=== PATIENT | female | born 1975 | race African-American/Black ===

== ENCOUNTER 2017-08-28 11:54 | Emergency (ER) | payer OTHER ==
[2017-08-28 14:05] VITALS: BP 159/100
--- NOTE | 2017-08-28 14:10 | UC ---
Hypertension HPI - HPI Summary HPI Summary: 42 yo female present stating it feels like her BP is high She has been non compliant with her meds (a diuretic) feels flushed and a little dizzy no CP or SOB - History of Current Complaint Chief Complaint: UCGeneralIllness Stated Complaint: BP ELEVATED Time Seen by Provider: 08/28/17 12:03 Hx Obtained From: Patient Hx Last Menstrual Period: 08/18/17 Onset/Duration: Gradual Onset, Lasting Hours Timing: Constant Aggravating Factor(s): Nothing Alleviating Factor(s): Nothing Associated Signs And Symptoms: Positive: Dizziness Related Hx: Rx Non-Compliance Current Medications: Diuretic - unsure of name - Allergies/Home Medications Allergies/Adverse Reactions: Allergies Allergy/AdvReac Type Severity Reaction Status Date / Time Penicillins Allergy Hives Verified 08/28/17 12:14 PMH/Surg Hx/FS Hx/Imm Hx Previously Healthy: Yes Cardiovascular History: Hypertension - Surgical History Surgical History: None - Family History Known Family History: Positive: Hypertension, Diabetes - Social History Alcohol Use: Rare Substance Use Type: None Smoking Status (MU): Never Smoked Tobacco Review of Systems Constitutional: Negative Skin: Negative Eyes: Negative ENT: Negative Respiratory: Negative Cardiovascular: Negative Gastrointestinal: Negative Genitourinary: Negative Motor: Negative Neurovascular: Negative Musculoskeletal: Negative Neurological: Negative Psychological: Negative Is Patient Immunocompromised?: No All Other Systems Reviewed And Are Negative: Yes Physical Exam Triage Information Reviewed: Yes Appearance: Well-Appearing, No Pain Distress, Well-Nourished Vital Signs: Initial Vital Signs Temp 98.8 F 08/28/17 12:14 Pulse 81 08/28/17 12:14 Resp 18 08/28/17 12:14 BP 175/113 08/28/17 12:14 Pulse Ox 100 08/28/17 12:14 Vital Signs Reviewed: Yes Eyes: Positive: Conjunctiva Clear, Other: - fundi- no H/E, sharp discs ENT: Negative: Nasal congestion, Nasal drainage, Trismus, Muffled voice, Hoarse voice Neck: Positive: Supple, Nontender, No Lymphadenopathy Respiratory: Positive: Lungs clear, Normal breath sounds, No respiratory distress, No accessory muscle use Cardiovascular: Positive: RRR, No Murmur, Pulses Normal Musculoskeletal: Positive: ROM Intact, No Edema Neurological: Positive: Alert Psychological Exam: Normal Skin Exam: Normal Diagnostics - EKG Cardiac Rate: NL Cardiac Rhythm: Sinus: Normal Ectopy: None ST Segment: Normal - pt with EKG evidence of LVH Hypertension Course/Dx - Course Course Of Treatment: I called her MDs office (Dr. Armijo) and the state she had not been in to see them since 2014 - Differential Dx/Diagnosis Provider Diagnoses: hypertension Discharge - Discharge Plan Condition: Stable Disposition: HOME Prescriptions: Chlorthalidone TAB* [Hygroton TAB*] 25 mg PO DAILY #30 tab Patient Education Materials: Low-Sodium Diet (ED), Hypertension (ED) Referrals: [facility] [place] PHYSICIAN REFERRAL [Outside] - As Soon As Possible Additional Instructions: you need to have this followed up...first available appt recheck for new or worsening symptoms
== END 2017-08-28 13:15 | disposition home or self-care (01) ==
LOC: UCEAST 11:54
DX: I10 Essential (primary) hypertension (principal)
CPT/HCPCS: 36415; 86703; 93005; 99202; G0463

== ENCOUNTER 2019-06-14 13:23 | Day surgery (SDC) | payer OTHER ==
[~2019-06-14 13:23] MED LIST: Buffered Lidocaine 1% SYRIN* 1 ML/SYRINGE INTRADERM ONE; Dexamethasone TAB* 4 MG PO ONE; DiMENhydriNATE IV* 50 MG/ML VIAL IV PUSH PRN; Famotidine IV* 10 MG/ML 2 ML (20 mg) IV ONE; Lactated Ringers 1000 ML Bag* 1,000 ML IV SCH; Metoclopramide IV* 5 MG/ML 2 ML VIAL IV PRN; Naloxone* 0.4 MG/ML 1 ML VIAL IV PRN; Ondansetron ODT TAB* 4 MG PO ONE; Scopolamine 1.5 mg* PATCH TRANSDERM PRN; fentaNYL* 50 MCG/ML 2 ML VIAL (100 MCG VIAL) IV PRN; oxyCODONE/Acetamin 5/325 MG* TAB PO PRN
[2019-06-14] MEDS ORDERED: Ondansetron ODT TAB* 4 MG ONE (13:52)
[2019-06-14] MEDS ORDERED: Dexamethasone TAB* 4 MG ONE (13:53)
[2019-06-14] MEDS ORDERED: Famotidine IV* 10 MG/ML 2 ML (20 mg) ONE (13:53)
[2019-06-14] MEDS ORDERED: fentaNYL* 50 MCG/ML 2 ML VIAL (100 MCG VIAL) ONE (14:17)
[2019-06-14] MEDS ORDERED: Midazolam* 1 MG/ML 5 ML VIAL (5 MG) ONE (14:18)
[2019-06-14] MEDS ORDERED: KETAMINE HCL* 50 MG/ML 10 ML VIAL ONE (14:18)
[2019-06-14] MEDS ORDERED: Silver Nitrate/Potassium Nitr* 1 EA STICK ONE (15:38)
[2019-06-14] MEDS ORDERED: PROCHLORPERAZINE INJ 5 MG/ML 2 ML VIAL ONE (16:09)
[2019-06-14] MEDS ORDERED: Lidocaine 2% PF * 5 ML VIAL ONE (16:09)
[2019-06-14] MEDS ORDERED: Ketorolac INJ* 30 MG/ML 1 ML VIAL ONE (16:09)
[2019-06-14] MEDS ORDERED: Propofol* 10 MG/ML 20 ML BTL ONE (16:09)
[2019-06-14] MEDS ORDERED: hydrALAZINE IV* 20 MG/ML VIAL ONE (16:17)
[2019-06-14] MEDS ORDERED: Metoprolol Tartrate IV* 1 MG/ML 5 ML VIAL ONE (16:17)
[2019-06-14 17:54] VITALS: BP 134/92
--- NOTE | 2019-06-14 21:00 | OP ---
DATE OF OPERATION: 06/14/19 [facility], [place] DATE OF : 71 SURGEON: Elisabet Cohen MD. ANESTHESIOLOGIST: Dr. Rivers. ANESTHESIA: General endotracheal anesthesia. PRE-OP DIAGNOSES: Menorrhagia, endometrial polyp on endometrial biopsy. POST-OP DIAGNOSES: Menorrhagia, endometrial polyp on endometrial biopsy. OPERATIVE PROCEDURE: Dilation, hysteroscopy, MyoSure polypectomy, curettage. ESTIMATED BLOOD LOSS: Minimal, less than 20 cc. SPECIMEN: Endometrial polyp and endometrial curettings. FLUIDS: Per Anesthesia. DRAINS: None. FINDINGS: Midline, anteverted, 6-week size bulky uterus, no adnexal masses palpated, midline normal appearing cervix. There was a long thin polyp originating from the anterior uterine wall extending towards the cervix. Both tubal ostia were visualized and appeared normal, only one polyp was seen. No fibroids were impinging on the endometrium. COMPLICATIONS: None. COUNTS: Sponge, lap, and needle counts were correct x2. CONDITION: The patient was brought to the recovery room awake and in stable condition. DESCRIPTION OF PROCEDURE: The patient was brought to the operating room when general anesthesia was found to be adequate. The patient was prepped and draped in the usual sterile fashion in the dorsal lithotomy position. A time- out was performed. Exam under anesthesia was performed. The weighted speculum was placed in the vagina. The anterior lip of the cervix was grasped with a single-tooth tenaculum and the cervix was gently and easily dilated with the graduated Hegar dilators. The hysteroscope was inserted. A long thin polyp was seen originating from the anterior wall extending down to the level of the cervix. Both tubal ostia were visualized. The MyoSure LITE was used to remove the polyp in its entirety. No other polyps were seen. No fibroids were seen impinging on the endometrium. The MyoSure was removed. Curettage was performed. All instruments removed from the vagina. The single-tooth tenaculum was removed from the anterior lip of the cervix. Excellent hemostasis was noted and the patient was brought to recovery room awake and in stable condition. [id number]/[facility] #: [id number] MTDD
[2019-06-17] MEDS ORDERED: Scopolamine PATCH Remove* 1 NOTE MISC PATCH OFF ONE (05:59)
== END 2019-06-14 17:58 | disposition home or self-care (01) ==
LOC: OR 13:23
PROVIDERS: ATTEND Obstetrics & Gynecology
DX: N92.0 Excessive and frequent menstruation with regular cycle (principal); N84.0 Polyp of corpus uteri; I10 Essential (primary) hypertension; Z88.0 Allergy status to penicillin
CPT/HCPCS: 81025; 88305; 88342; A9270-GY; J0360; J0780; J1885; J2250; J2704; J3010; J3490; J8540

== ENCOUNTER 2019-11-04 06:28 | Observation (INO) | payer OTHER ==
[2019-11-04] MEDS ORDERED: Ondansetron INJ* 2 MG/ML VIAL ONE ×2 (07:21→10:24)
[2019-11-04] MEDS ORDERED: Naproxen TAB* 250 MG ONE (07:21)
[2019-11-04] MEDS ORDERED: LORazepam TAB(*) 1 MG ONE ×2 (07:21→13:45)
[2019-11-04] MEDS ORDERED: Scopolamine 1.5 mg* PATCH ONE (07:21)
[2019-11-04] MEDS ORDERED: oxyCODONE SR TAB(*) 10 MG TAB.SR ONE (07:21)
[2019-11-04] MEDS ORDERED: diPHENhydraMINE IV* 50 MG/ML 1 ml VIAL (BENADRYL) ONE (07:41)
[2019-11-04] MEDS ORDERED: Heparin 2 UNITS/ML IVPREMIX* 2,000 ML IV ONE (07:59)
[2019-11-04] MEDS ORDERED: Lidocaine 1% INJ* 10 MG/ML 30 ML SDV ONE (07:59)
[2019-11-04] MEDS ORDERED: Iohexol 350 (CONTRAST) 200 ML MDV IV ONE (07:59)
[2019-11-04] MEDS ORDERED: ceFAZolin 1 GM in Dextrose (*) 1 GM/50 ML BAG IVPB ONE (08:00)
[2019-11-04] MEDS ORDERED: metroNIDAZOLE IV 500 MG/100ML* 500 MG/100 ML BAG IVPB ONE (08:00)
[2019-11-04] MEDS ORDERED: diPHENhydraMINE IV* 50 MG/ML 1 ml VIAL (BENADRYL) IV ONE (08:00)
[2019-11-04] MEDS ORDERED: Midazolam* 1 MG/ML 5 ML VIAL (5 MG) ONE (08:09)
[2019-11-04] MEDS ORDERED: fentaNYL* 50 MCG/ML 5 ML VIAL (250 MCG VIAL) ONE (08:09)
[2019-11-04] MEDS ORDERED: nitroGLYCERIN DRIP* 25,000 MCG/250 ML BTL ONE (08:21)
[2019-11-04] MEDS ORDERED: Ketorolac INJ* 30 MG/ML 1 ML VIAL ONE ×2 (08:21→10:23)
[2019-11-04] MEDS ORDERED: HYDROmorphone PCA* 20 MG/20 ML in PREMIX PCA SCH (09:00)
[2019-11-04] MEDS ORDERED: HYDROmorphone INJ1* 1 MG/ML SYRINGE ONE (10:34)
[2019-11-04] MEDS ORDERED: HYDROcodone/ACETAMIN 5-325 MG* 1 TAB PO PRN (11:57)
[2019-11-04] MEDS: HYDROmorphone INJ* 0.5 MG/0.5 ML SYRINGE IV PRN ×3 (12:42→17:29)
[2019-11-04] MEDS ORDERED: Ondansetron ODT TAB* 4 MG ONE (13:02)
[2019-11-04] MEDS ORDERED: LORazepam TAB(*) 0.5 MG PO ONE (13:24)
[2019-11-04] MEDS ORDERED: Metoprolol Tartrate IV* 1 MG/ML 5 ML VIAL ONE (13:48)
[2019-11-04] MEDS ORDERED: Metoprolol Tartrate IV* 1 MG/ML 5 ML VIAL IV SCH (14:00)
[2019-11-04] MEDS ORDERED: Ketorolac TAB * 10 MG TAB PO ONE (14:00)
[2019-11-04] MEDS ORDERED: Ondansetron TAB* 4 MG PO ONE (14:00)
[2019-11-04] MEDS: HYDROcodone/ACETAMIN 5-325 MG* 1 TAB PO PRN ×2 (15:14→20:27)
[2019-11-04] MEDS ORDERED: Senna TAB 8.6 mg* TAB PO PRN (15:55)
[2019-11-04] MEDS ORDERED: Acetaminophen TAB* 325 MG PO PRN (15:55)
[2019-11-04] MEDS ORDERED: Al Hydrox/Mg Hydrox/Simet LIQ* 30 ML UDC PO PRN (15:55)
[2019-11-04] MEDS: Ketorolac INJ* 15 MG/ML 1 ML VIAL IV PUSH SCH (18:13)
--- NOTE | 2019-11-04 19:48 | HP ---
CC: Dr. Herrera * HISTORY AND PHYSICAL: DATE OF ADMISSION: 11/04/19 PRIMARY CARE PROVIDER: Dr. Herrera. GLOBAL MARKETING COORDINATOR: Dr. Cohen. CHIEF COMPLAINT: Status post uterine fibroid embolization. HISTORY OF PRESENT ILLNESS: Ms. Sen is a 44-year-old female who has a history of heavy menstrual bleeding. She was evaluated for this with Dr. Cohen back in June 2019. She underwent D and C on 06/14/19. Unfortunately , the patient continued to have heavy menstrual bleeding. She was seen in consultation by Dr. Purvis who felt she would benefit from uterine fibroid embolization. The patient underwent this procedure today, 11/04/19. I am seeing the patient postprocedure. She is quite groggy from the pain medication that has been administrated to her. She does tell me at this time she continues to have severe cramps and pain in her pelvis. That is the most that I am able to get out of her at this time. PAST MEDICAL HISTORY: 1. Hypertension. 2. Heavy menstrual bleeding. 3. Vitamin D deficiency. PAST SURGICAL HISTORY: . MEDICATIONS: 1. Norethindrone 5 mg p.o. daily. 2. Naproxen 500 mg p.o. q.8 hours p.r.n. pain. 3. Multivitamin 1 tab p.o. daily. 4. Losartan 50 mg p.o. q.h.s. 5. Ferrous sulfate 325 mg p.o. daily. 6. Vitamin D 5000 units p.o. daily. 7. Cetirizine 10 mg p.o. daily. ALLERGIES: PENICILLIN, AMLODIPINE, CLINDAMYCIN. FAMILY HISTORY: Mom and dad are both living and healthy. SOCIAL HISTORY: The patient does not smoke. She drinks on occasion. She works in [employer] for [employer]. REVIEW OF SYSTEMS: As per HPI and otherwise negative. PHYSICAL EXAMINATION GENERAL: The patient is a well-developed, middle aged female, lying flat on her back in the bed, in no acute distress. VITAL SIGNS: Blood pressure 169/100, pulse 81, respirations 18, temp 97.8, O2 sat 100% on room air. HEENT: Pupils are equal. Extraocular muscles are intact. Oropharynx is clear and moist. PULMONARY: Lungs are clear to auscultation anteriorly. CARDIAC: Normal S1, S2. Regular rate and rhythm. I do not appreciate any murmurs. There is no lower extremity edema. ABDOMEN: Bowel sounds are present. Abdomen is soft, diffusely tender to palpation. MUSCULOSKELETAL: The patient moves all 4 extremities symmetrically. ASSESSMENT AND PLAN: Ms. Sen is a 44-year-old female who underwent uterine fibroid embolization with Dr. Purvis today and is being admitted for pain control. 1. Uterine fibroid embolization. At this point, the patient is able to get up out of bed. She unfortunately failed her trials to be able to get home. She will continue with p.r.n. Dilaudid and standing ketorolac for pain control. The plan is for likely discharge home tomorrow. 2. Iron deficiency anemia. The patient is on iron supplementation. This will need to be continued on discharge. 3. Hypertension. Blood pressure is moderately elevated, likely secondary to pain at this time. She will be resumed on losartan 50 mg p.o. q.h.s. 4. DVT prophylaxis: According to the Adult Thrombosis Prophylaxis Risk Factor Assessment Guide, the patient has a total risk factor score of 1, making her low risk. Ambulation will be utilized as DVT prophylaxis. 5. Code status is full. TIME SPENT: Forty five minutes was spent admitting this patient. [id number]/[facility] #: [id number] MTDD
[2019-11-04] MEDS: Ondansetron INJ* 2 MG/ML VIAL IV PRN (20:11)
[2019-11-04] MEDS: Metoprolol Tartrate IV* 1 MG/ML 5 ML VIAL IV SCH (20:17)
[2019-11-04] MEDS ORDERED: Losartan TAB* 25 MG PO SCH (21:00)
[2019-11-05] MEDS: Ketorolac INJ* 15 MG/ML 1 ML VIAL IV PUSH SCH ×2 (01:08→06:02)
[2019-11-05] MEDS: Metoprolol Tartrate IV* 1 MG/ML 5 ML VIAL IV SCH ×3 (01:13→08:14)
[2019-11-05] MEDS: Ondansetron INJ* 2 MG/ML VIAL IV PRN (03:10)
[2019-11-05 04:55] LABS: ABS Lymphocytes 1.7 10^3/ul (1.0-4.8); ABS Monocytes 0.7 10^3/ul (0-0.8); ABS Neutrophils 12.1 10^3/ul (1.5-7.7); Hematocrit 34 % (35-47); Hemoglobin 11.3 g/dL (12.0-16.0); Lymphocyte % 11.6 %; Mean Corpuscular HGB Conc 34 g/dL (31-36); Mean Corpuscular Hemoglobin 28 pg (27-31); Mean Corpuscular Volume 82 fL (80-97); Mean Platelet Volume 7.4 fL (7.4-10.4); Platelet Count 326 10^3/uL (150-450); Red Blood Count 4.11 10^6 /uL (3.70-4.87); Red Cell Distribution Width 14 % (10-15); White Blood Count 14.5 10^3/uL (3.5-10.8)
[2019-11-05 08:03] VITALS: BP 150/91
[2019-11-05] MEDS ORDERED: Ondansetron TAB* 4 MG PO SCH (09:10)
--- NOTE | 2019-11-05 09:27 | PN ---
Progress Note - Progress Note Date of Service: 11/05/19 SOAP: Subjective: Pelvic pain is rated at 3/10. The patient currently denies nausea or emesis, but does report decreased appetite. + void. + Ambulate independently. Objective: Selected Entries 11/05/19 08:02 Temperature 99.2 F Temperature Temporal Artery Source Scan Pulse Rate 71 Respiratory 18 Rate Blood Pressure 150/91 (mmHg) Blood Pressure 110 Mean O2 Sat by Pulse 100 Oximetry NAD, AAO x 3 Right groin arteriotomy site is soft and nontender. The dressing is clean dry and intact. 2+ pulse palpable at the right common femoral artery, popliteal artery and dorsalis pedis artery. No significant tenderness is elicited when compressing the suprapubic area. There is no rebound tenderness or guarding. Assessment: 44-year-old female postoperative day #1 status post uterine fibroid arterial embolization with pain and nausea well controlled. Plan: 1. Discharge to home. 2. Routine post UFE follow-up will include a telephone call from the interventional radiology clinic nurse 11/08/2019 as well as later in the same week. Follow-up office visit (or telemedicine visit) will occur in 6 weeks and 6 months. 3. Outpatient medication regimen is as follows: Toradol 10 mg PO Q 6 hours x 3 days (Dispense #15 with one refill) AFTER Toradol is complete: Ibuprofen 400 mg PO Q 6 hours OR Naprosyn 225 mg PO Q 8 hours for 3-5 days (do not take both) [place] 5/325, take 1 or 2 tablets by mouth Q 6 hours PRN breakthrough pain ( Dispense #40) Zofran 4 mg PO Q 6 hours x 7 days (Dispense #30 with one refill) Scopolamine 1.5 mg transdermal to mastoid process. On 11/06/2019 at 1800 hrs., remove current patch, replace with new patch and wear x 3 days. Drink one cup of laxative tea daily (For example, "Smooth Move") for one week.
[2019-11-05] MEDS ORDERED: Ketorolac TAB * 10 MG TAB PO SCH (12:00)
--- NOTE | 2019-11-06 19:48 | DS ---
CC: Dr. Herrera * DISCHARGE SUMMARY: DATE OF ADMISSION: 11/04/19 DATE OF DISCHARGE: 11/05/19 PRIMARY CARE PROVIDER: Dr. Herrera. PRINCIPAL DIAGNOSIS: Status post uterine fibroid embolization. SECONDARY DIAGNOSES: 1. Iron-deficiency anemia. 2. Hypertension. DISCHARGE MEDICATIONS: 1. Multivitamin 1 tab p.o. daily. 2. Cozaar 50 mg p.o. q.h.s. 3. Ferrous sulfate 325 mg p.o. daily. 4. Vitamin D 5000 units p.o. daily. 5. Cetirizine 10 mg p.o. daily. 6. Scopolamine patch, 1 patch apply topically q.72 hours, reapply on 11/06/19. 7. Zofran 4 mg p.o. q.6 hours x7 days. 8. Ketorolac 10 mg p.o. q.6 hours x3 days. 9. Neville 1 to 2 tabs p.o. q.6 hours p.r.n. breakthrough pain. HOSPITAL COURSE: Ms. Sen is a 44-year-old female with a history of chronic iron-deficiency anemia secondary to heavy menses who underwent uterine fibroid embolization with Dr. Purvis. The plan was to try to discharge her home following the procedure; however, pain was too much of an issue. She was admitted under observation status for overnight. She was quite sleepy when I initially met her; however, on the day of discharge, she is awake, alert, and oriented, feeling well. She states the pain is around 3/10. She has no nausea. At this point, it is felt that the patient is stable for discharge home. PHYSICAL EXAMINATION: The patient is awake, alert, and oriented on the day of discharge. Cardiac exam reveals normal S1, S2 with a regular rate and rhythm. Lungs are clear. Abdomen is soft. She is mildly tender to palpation in the pelvis. FOLLOWUP CONCERNS: The patient is being discharged home today, 11/05/19. ACTIVITY LEVEL: Per post UFE. CONDITION ON DISCHARGE: Stable. DIET: Regular. TIME SPENT: Twenty-five minutes was spent discharging this patient. [id number]/[facility] #: [id number] MTDD
== END 2019-11-05 11:15 | disposition home or self-care (01) ==
LOC: CHICATH 06:28 → SSU 15:55
PROVIDERS: ADMIT Hospitalist; ATTEND Radiology Diagnostic Radiology
DX: N92.0 Excessive and frequent menstruation with regular cycle (principal); D25.9 Leiomyoma of uterus, unspecified; D50.9 Iron deficiency anemia, unspecified; I10 Essential (primary) hypertension; E55.9 Vitamin D deficiency, unspecified; Z79.899 Other long term (current) drug therapy; Z88.0 Allergy status to penicillin
CPT/HCPCS: 36415; 37243; 75736; 76937; 84702; 85025; 99156; 99157; A4467; A9270-GY; C1760; C1769; C1884; C1887; C1894; G0378; J0690; J1170; J1200; J1644; J1885; J2250; J2405; J3010; J3490